=== PATIENT | male | born 1985 | race Caucasian/White ===

== ENCOUNTER 2019-12-25 06:35 | Emergency (ER) | payer SELFPAY ==
[2019-12-25 07:23] LABS: Absolute Lymphocytes (CBC) 3.2 K/uL (0.7-4.9); Basophils % 0.4 % (0-1.3); Hematocrit 43.8 % (39.6-49.0); Lymphocytes % 22.7 % (15.3-44.8); MPV 8.2 fL (7.6-11.3); RBC Red Blood Cell Count 4.86 M/uL (4.33-5.43)
[2019-12-25 07:33] LABS: Albumin 3.4 g/dL (3.4-5.0); Bilirubin Direct 0.1 mg/dL (0-0.2); Bilirubin Total 0.4 mg/dL (0.2-1.0); Potassium 3.5 mmol/L (3.5-5.1); Protein, Total 7.2 g/dL (6.4-8.2)
[2019-12-25] MEDS ORDERED: ONDANSETRON 4 MG/2 ML VIAL ONE (07:35)
[2019-12-25] MEDS ORDERED: NA CHLORIDE 0.9% 1,000 ML ONE (07:35)
[2019-12-25] MEDS ORDERED: FENTANYL CITR 100 MCG/2 ML ONE (07:35)
--- NOTE | 2019-12-25 08:12 | RAD REPORT ---
EXAM DESCRIPTION: CT - Abdomen Pelvis W Contrast - 12/25/2019 7:46 am CLINICAL HISTORY: Abdominal pain COMPARISON: none. TECHNIQUE: Computed axial tomography of the abdomen pelvis was obtained. 100 cc Isovue-300 was admin istered intravenously. Oral contrast was not requested which limits evaluation of bowel. All CT scans are performed using dose optimization technique as appropriate and may include automated exposure control or mA/KV adjustment according to patient size. FINDINGS: There is a delay concentration contrast within the right kidney. Mild right hydronephrosis . 2 millimeter calculus right UVJ The liver, spleen, pancreas and right adrenal gland are unremarkable 18 millimeter low to intermediate density mass left adrenal gland There is no evidence of diverticulitis. Normal appendix Small umbilical hernia IMPRESSION: 2 millimeter right UVJ calculus resulting in mild right hydronephrosis 18 millimeter left adrenal mass. Nonemergent MRI recommended to rule in an adenoma
[2019-12-25] MEDS ORDERED: KETOROLAC 30 MG/ML INJ ONE (08:39)
--- NOTE | 2019-12-25 08:48 | EDPHYS ---
Physician Documentation [facility] Name: Avery Carter Age: 34 yrs Sex: Male : 1985 Arrival Date: 12/25/2019 Time: 06:40 Bed 5 Private MD: ED Physician Bakari Alcantara HPI: 12/24 07:19 This 34 yrs old Male presents to ER via Ambulatory with complaints of jr8 Vomiting, Flank Pain. 07:19 The patient presents to the emergency department with nausea, vomiting, abdominal pain, jr8 of the anterior aspect of right lateral abdomen and right lower quadrant, described as shooting. Onset: The symptoms/episode began/occurred acutely, today. Possible causes: unknown. The symptoms are aggravated by nothing. The symptoms are alleviated by nothing. Associated signs and symptoms: Pertinent positives: vomiting. Severity of symptoms: At their worst the symptoms were moderate in the emergency department the symptoms are unchanged. The patient has not experienced similar symptoms in the past. The patient has not recently seen a physician. Historical: - Allergies: 06:58 Codeine; mt2 06:58 PENICILLINS; mt2 - PMHx: 06:58 None; mt2 - Immunization history:: Adult Immunizations not up to date. - Social history:: Smoking status: Patient reports the use of cigarette tobacco products, denies chronic smoking, but will smoke occasionally. ROS: 07:19 Eyes: Negative for injury, pain, redness, and discharge, ENT: Negative for injury, jr8 pain, and discharge, Neck: Negative for injury, pain, and swelling, Cardiovascular: Negative for chest pain, palpitations, and edema, Respiratory: Negative for shortness of breath, cough, wheezing, and pleuritic chest pain, Back: Negative for injury and pain, MS/Extremity: Negative for injury and deformity, Skin: Negative for injury, rash, and discoloration, Neuro: Negative for headache, weakness, numbness, tingling, and seizure. 07:19 Abdomen/GI: Positive for abdominal pain, nausea and vomiting, Negative for diarrhea, constipation, abdominal cramps, abdominal distension, anorexia, dysphagia, hematemesis, black/tarry stool, rectal pain, rectal bleeding, bowel incontinence, flatulence. Exam: 07:19 ENT: Nares patent. No nasal discharge, no septal abnormalities noted. Tympanic jr8 membranes are normal and external auditory canals are clear. Oropharynx with no redness, swelling, or masses, exudates, or evidence of obstruction, uvula midline. Mucous membranes moist. Cardiovascular: Regular rate and rhythm with a normal S1 and S2. No gallops, murmurs, or rubs. Normal PMI, no JVD. No pulse deficits. Respiratory: Lungs have equal breath sounds bilaterally, clear to auscultation and percussion. No rales, rhonchi or wheezes noted. No increased work of breathing, no retractions or nasal flaring. Back: No spinal tenderness. No costovertebral tenderness. Full range of motion. Skin: Warm, dry with normal turgor. Normal color with no rashes, no lesions, and no evidence of cellulitis. MS/ Extremity: Pulses equal, no cyanosis. Neurovascular intact. Full, normal range of motion. Neuro: Awake and alert, GCS 15, oriented to person, place, time, and situation. Cranial nerves II-XII grossly intact. Motor strength 5/5 in all extremities. Sensory grossly intact. Cerebellar exam normal. Normal gait. 07:19 Abdomen/GI: Inspection: abdomen appears normal, Bowel sounds: active, all quadrants, Palpation: soft, in all quadrants, mild abdominal tenderness, in the anterior aspect of right lateral abdomen, right upper quadrant and right lower quadrant, mass, is not appreciated, rebound tenderness, is not appreciated, voluntary guarding, is not appreciated, involuntary guarding, is not appreciated, no appreciated organomegaly, Indicators: McBurney's point is not tender, Cruz's sign is negative, Rovsing's sign is negative, Liver: tenderness, is not appreciated. Vital Signs: 06:59 BP 156 / 101; Pulse 91; Resp 16; Temp 98.1; Pulse Ox 99% ; Pain 10/10; mt2 08:23 BP 142 / 100; Pulse 68; Resp 16; Pulse Ox 100% ; bp 09:31 BP 156 / 92; Pulse 67; Resp 17; Temp 98; Pulse Ox 97% ; bp MDM: 06:45 Patient medically screened. jr8 08:44 Data reviewed: vital signs, nurses notes, lab test result(s), radiologic studies, CT jr8 scan. Data interpreted: Pulse oximetry: on room air is 100 %. Interpretation: normal. Counseling: I had a detailed discussion with the patient and/or guardian regarding: the historical points, exam findings, and any diagnostic results supporting the discharge/admit diagnosis, lab results, radiology results, the need for outpatient follow up, a urologist, to return to the emergency department if symptoms worsen or persist or if there are any questions or concerns that arise at home. Response to treatment: the patient's symptoms have markedly improved after treatment. ED course: Patient able to urinate. Pain decreased. No vomiting. Will d/c home and trial him on out patient medications to see if he can pass stone without urologic assistance. Knows to come back if he starts to run fever, have increased pain, or cannot hold down medication . 12/24 06:45 Order name: Basic Metabolic Panel; Complete Time: 07:49 12/24 06:45 Order name: CBC with Diff; Complete Time: 07:31 12/24 06:45 Order name: Hepatic Function; Complete Time: 07:49 12/24 06:45 Order name: Lipase; Complete Time: 07:49 12/24 07:19 Order name: CT Abd/Pelvis - IV Contrast Only; Complete Time: 08:15 12/24 06:45 Order name: IV Saline Lock; Complete Time: 07:02 12/24 06:45 Order name: Labs collected and sent; Complete Time: 07: Administered Medications: 07:30 Drug: fentaNYL (PF) 50 mcg Route: IVP; Site: right antecubital; bp 08:31 Follow up: Response: Pain is decreased bp 07:30 Drug: Zofran (Ondansetron) 4 mg Route: IVP; Site: right antecubital; bp 08:31 Follow up: Response: Nausea is decreased bp 07:30 Drug: NS 0.9% 1000 ml Route: IV; Rate: 1000 ml; Site: right antecubital; bp 09:33 Follow up: IV Status: Completed infusion; IV Intake: 1000ml bp 08:30 Drug: TORadol - Ketorolac 15 mg Route: IVP; Site: right antecubital; bp 08:48 Follow up: Response: Pain is decreased bp Disposition: 12/25/19 08:48 Discharged to Home. Impression: Hydronephrosis with renal and ureteral calculous obstruction. - Condition is Stable. - Discharge Instructions: Kidney Stones, Hydronephrosis. - Prescriptions for Cipro 500 mg Oral Tablet - take 1 tablet by ORAL route every 12 hours for 7 days; 14 tablet. Zofran 4 mg Oral Tablet - take 1 tablet by ORAL route every 12 hours As needed; 20 tablet. Flomax 0.4 mg Oral Capsule, Sust. Release 24 hr - take 1 capsule by ORAL route once daily 1/2 hour following the same meal each day; 30 capsule. Tramadol 50 mg Oral Tablet - take 1 tablet by ORAL route every 8 hours as needed; 12 tablet. - Medication Reconciliation Form, Thank You Letter, Antibiotic Education, Prescription Opioid Use form. - Follow up: Ugo Grace MD; When: 5 - 6 days; Reason: Recheck today's complaints, Continuance of care, Re-evaluation by your physician. - Problem is new. - Symptoms have improved. Addendum: 12/28/2019 06:13 Co-signature as Attending Physician, Bakari Alcantara MD. m Signatures: Dispatcher [employer] EDMS Flo Souza PA PA jr8 Roland Solis RN RN Bakari Hernandes MD MD 7 Ailyn Randall RN RN mt2 Corrections: (The following items were deleted from the chart) 12/24 09:33 08:47 Urine Dipstick-Ancillary ordered. jacobo 09:33 08:48 12/25/2019 08:48 Discharged to Home. Impression: Hydronephrosis with renal and bp ureteral calculous obstruction. Condition is Stable. Forms are Medication Reconciliation Form, Thank You Letter, Antibiotic Education, Prescription Opioid Use. Follow up: Ugo Grace; When: 5 - 6 days; Reason: Recheck today's complaints, Continuance of care, Re-evaluation by your physician. Problem is new. Symptoms have improved. jr8
--- NOTE | 2019-12-25 08:48 | ER ---
Nurse's Notes [facility] Name: Avery Carter Age: 34 yrs Sex: Male : 1985 Arrival Date: 12/25/2019 Time: 06:40 Bed 5 Private MD: Diagnosis: Hydronephrosis with renal and ureteral calculous obstruction Presentation: 12/24 06:54 Chief complaint: Patient states: PER PT RLQ SINCE LAST NIGHT WITH N/V. HAD A FROZEN mt2 DINNER OF [employer]. DENIES FEVER. 1 EPISODE OF DIARRHEA LAST NIGHT. Coronavirus screen: Client denies travel out of the [place] in the last 14 days. At this time, the client does not indicate any symptoms associated with coronavirus-19. Ebola Screen: No symptoms or risks identified at this time. Initial Sepsis Screen: Does the patient meet any 2 criteria? No. Patient's initial sepsis screen is negative. Does the patient have a suspected source of infection? No. Patient's initial sepsis screen is negative. Risk Assessment: Do you want to hurt yourself or someone else? Patient reports no desire to harm self or others. Onset of symptoms was December 24, 2019 at 20:20. 06:54 Method Of Arrival: Ambulatory mt2 06:54 Acuity: ALY 3 mt2 Triage Assessment: 07:01 General: Appears uncomfortable, Behavior is agitated. Pain: Complains of pain in right mt2 upper quadrant and right lower quadrant Pain currently is 10 out of 10 on a pain scale. Quality of pain is described as sharp. EENT: No deficits noted. Neuro: No deficits noted. Cardiovascular: No deficits noted. Respiratory: No deficits noted. GI: Abdomen is flat, Bowel sounds present X 4 quads. Abdomen is tender to palpation Reports lower abdominal pain, nausea, vomiting. : No deficits noted. Derm: No deficits noted. Musculoskeletal: No deficits noted. Historical: - Allergies: 06:58 Codeine; mt2 06:58 PENICILLINS; mt2 - PMHx: 06:58 None; mt2 - Immunization history:: Adult Immunizations not up to date. - Social history:: Smoking status: Patient reports the use of cigarette tobacco products, denies chronic smoking, but will smoke occasionally. Screenin:00 Abuse screen: Denies threats or abuse. Nutritional screening: No deficits noted. mt2 Tuberculosis screening: No symptoms or risk factors identified. Fall Risk None identified. Assessment: 07:00 General: Appears in no apparent distress. uncomfortable, Behavior is cooperative, bp appropriate for age, anxious. Pain: Complains of pain in right lower quadrant. Neuro: No deficits noted. Cardiovascular: No deficits noted. Respiratory: No deficits noted. GI: Abdomen is non-distended. : No signs and/or symptoms were reported regarding the genitourinary system. EENT: No deficits noted. Derm: No deficits noted. Musculoskeletal: No deficits noted. 08:21 Reassessment: PT RETURNED FROM CT. bp 09:31 Reassessment: PT D/C HOME AMBULATORY, DX WITH NEPHROLITHIASIS. bp Vital Signs: 06:59 BP 156 / 101; Pulse 91; Resp 16; Temp 98.1; Pulse Ox 99% ; Pain 10/10; mt2 08:23 BP 142 / 100; Pulse 68; Resp 16; Pulse Ox 100% ; bp 09:31 BP 156 / 92; Pulse 67; Resp 17; Temp 98; Pulse Ox 97% ; bp ED Course: 06:40 Patient arrived in ED. es 06:44 Flo Souza PA is PHCP. jr8 06:44 Bakari Alcantara MD is Attending Physician. jr8 06:49 Ailyn Randall, DONNA is Primary Nurse. mt2 06:56 Triage completed. mt2 06:59 Arm band placed on right wrist. mt2 07:02 Patient has correct armband on for positive identification. Call light in reach. Side mt2 rails up X 1. 07:06 Inserted saline lock: 20 gauge in right antecubital area, using aseptic technique. bp Blood collected. 07:35 Primary Nurse role handed off by Ailyn Randall, DONNA bp 07:35 Roland Solis, RN is Primary Nurse. bp 07:46 CT Abd/Pelvis - IV Contrast Only In Process Unspecified. EDMS 08:47 Ugo Grace MD is Referral Physician. jr8 09:31 No provider procedures requiring assistance completed. IV discontinued, intact, bp bleeding controlled, No redness/swelling at site. Pressure dressing applied. Administered Medications: 07:30 Drug: fentaNYL (PF) 50 mcg Route: IVP; Site: right antecubital; bp 08:31 Follow up: Response: Pain is decreased bp 07:30 Drug: Zofran (Ondansetron) 4 mg Route: IVP; Site: right antecubital; bp 08:31 Follow up: Response: Nausea is decreased bp 07:30 Drug: NS 0.9% 1000 ml Route: IV; Rate: 1000 ml; Site: right antecubital; bp 09:33 Follow up: IV Status: Completed infusion; IV Intake: 1000ml bp 08:30 Drug: TORadol - Ketorolac 15 mg Route: IVP; Site: right antecubital; bp 08:48 Follow up: Response: Pain is decreased bp Intake: 09:33 IV: 1000ml; Total: 1000ml. bp Outcome: 08:48 Discharge ordered by MD. centeno 09:31 Discharged to home ambulatory. bp 09:31 Condition: stable 09:31 Discharge instructions given to patient, Instructed on discharge instructions, follow up and referral plans. medication usage, Demonstrated understanding of instructions, follow-up care, medications. 09:33 Patient left the ED. bp Signatures: Dispatcher [employer] Chloe Powell Josh, PA PA jr8 Roland Solis, RN RN bp Ailyn Randall RN RN mt2
[2019-12-29 22:49] VITALS: BP 156/92; TEMP 98; O2SAT 97
== END 2019-12-25 09:33 | disposition home or self-care (01) ==
LOC: ER 06:35
DX: N13.2 Hydronephrosis with renal and ureteral calculous obstruction (principal); F17.210 Nicotine dependence, cigarettes, uncomplicated; Z88.0 Allergy status to penicillin; Z88.5 Allergy status to narcotic agent
CPT/HCPCS: 36415; 74177; 80048; 80076; 83690; 85025; 96361; 96374; 96375; 99284; J2405; J3010; J7030; Q9967